=== PATIENT | male | born 1960 | race Caucasian/White ===

== ENCOUNTER 2025-06-09 21:28 | Emergency (ER) | payer OTHER ==
[~2025-06-09] VITALS: Ht 187.9 cm; Wt 127.0 kg
[2025-06-09] MEDS ORDERED: METHOCARBAMOL 750 MG TAB PO ONE (21:35)
[2025-06-09 21:54] LABS: BASO # 0.0 10*3/uL (0.0-0.1); BASO % 0.3 % (0.0-1.0); EOS # 0.1 10*3/uL (0.0-0.4); EOS % 0.5 % (1.0-4.0); MEAN CELL VOLUME 93.0 fl (80.0-94.0); MEAN CORPUSCULAR HGB 30.8 pg (27.0-31.0); MEAN PLATELET VOLUME 9.5 fl (9.6-12.3); MONO # 1.0 10*3/uL (0.1-1.0); MONO % 7.6 % (3.0-9.0); NEUT # 11.1 10*3/uL (2.3-7.9); NEUT % 83.6 % (47.0-73.0); NUCLEATED RED BLOOD CELL 0.0 % (0.0-0.0); NUCLEATED RED BLOOD CELL 0.0 10*3/uL (0.0-0.0); PLATELET COUNT AUTOMATED 190 10*3/uL (130-400); RED CELL DISTRI WIDTH 13.2 % (0-14.5)
[2025-06-09 22:12] LABS: BUN 14 mg/dl (9-23)
[2025-06-09] MEDS ORDERED: HYDROCODONE-AC1 EAC1 PO (22:29)
[2025-06-09] MEDS ORDERED: METHOCARBAMOL500 M1 PO (22:29)
[2025-06-09] MEDS ORDERED: Acetaminophen/Hydrocodone HP 10/325 PO ONE (22:30)
[2025-06-10] MEDS ORDERED: PREDNISONE20 M1 PO (09:00)
[2025-06-10] MEDS ORDERED: METHOCARBAMOL750 M1 PO (09:00)
[2025-06-10] MEDS ORDERED: AMIODARONE HYD200 MG PO (09:56)
[2025-06-10] MEDS ORDERED: METHOCARBAMOL500 M1 PO (09:58)
[2025-06-10] MEDS ORDERED: ATORVASTATIN CA40 M1 PO (10:16)
[2025-06-10] MEDS ORDERED: ELIQUIS5 M1 PO (10:16)
[2025-06-11] MEDS ORDERED: METOPROLOL SUCC50 M1 PO (09:21)
[2025-06-12] MEDS ORDERED: PREDNISONE50 MG PO (11:12)
[2025-06-12] MEDS ORDERED: AMMONIUM LACTA227 GM T (11:12)
[2025-06-12] MEDS ORDERED: CYCLOBENZAPRINE10 MG PO (11:12)
== END 2025-06-09 21:50 | disposition home or self-care (01) ==
LOC: ED 21:28
PROVIDERS: Nurse Practitioner Family
DX: G89.29 Other chronic pain (principal); M54.50 Low back pain, unspecified; Z88.6 Allergy status to analgesic agent

== ENCOUNTER 2025-06-09 23:32 | Emergency (ER) | payer OTHER ==
[~2025-06-09 23:32] MED LIST: HYDROCODONE-AC1 EAC1 PO; METHOCARBAMOL500 M1 PO
[2025-06-10] MEDS ORDERED: Ondansetron Hydrochloride 4 MG/2 ML VIAL IV ONE (07:40)
[2025-06-10] MEDS ORDERED: Dexamethasone Sodium Phospha 20 MG/5 ML VIAL IV ONE (07:40)
[2025-06-10] MEDS ORDERED: diazePAM 5 MG TAB PO ONE (07:40)
[2025-06-10] MEDS ORDERED: PREDNISONE20 M1 PO (09:00)
[2025-06-10] MEDS ORDERED: METHOCARBAMOL750 M1 PO (09:00)
[2025-06-10] MEDS ORDERED: AMIODARONE HYD200 MG PO (09:56)
[2025-06-10] MEDS ORDERED: METHOCARBAMOL500 M1 PO (09:58)
[2025-06-10] MEDS ORDERED: ELIQUIS5 M1 PO (10:16)
[2025-06-10] MEDS ORDERED: ATORVASTATIN CA40 M1 PO (10:16)
[2025-06-11] MEDS ORDERED: METOPROLOL SUCC50 M1 PO (09:21)
[2025-06-12] MEDS ORDERED: CYCLOBENZAPRINE10 MG PO (11:12)
[2025-06-12] MEDS ORDERED: AMMONIUM LACTA227 GM T (11:12)
[2025-06-12] MEDS ORDERED: PREDNISONE50 MG PO (11:12)
== END 2025-06-10 09:04 | disposition left against medical advice (07) ==
LOC: ED 23:32
DX: M54.6 Pain in thoracic spine (principal); M54.50 Low back pain, unspecified; I11.0 Hypertensive heart disease with heart failure; I50.9 Heart failure, unspecified; I48.91 Unspecified atrial fibrillation